=== PATIENT | female | born 1990 | race Caucasian/White ===

== ENCOUNTER 2021-09-26 11:33 | Inpatient (IN) | payer OTHER ==
--- NOTE | 2021-09-26 12:55 | NUR ---
QUAD SWAB COLLECTED SEMT TO IN-HOUSE LAB
--- NOTE | 2021-09-26 18:52 | PR ---
[facility] [address] [facility] [place], [place] [address] Signed Progress Notes IP Datetime Report Generated by CPN: 09/26/2021 18:52 PROGRESS NOTES: [id number] Plan: Continue Present Management; Cervical Ripening VITAL SIGNS: [id number] Vital Signs: Reviewed; Within Normal Limits EXAM: [id number] Dilatation: 1.0 Effacement: 25 Station: -2 Contractions: none MEMBRANES: [id number] Membranes Status: Intact Comments: Beginning to feel contractions, BP somewhat elevated (1 high, but while patient moving around) PIH Panel and Urine PC Ratio normal -> Getational Hypertension -> will follow closely, continue monitoring BP, do not feel patient has Preeclampsia at this time; discussed dx and plan with patient FETUS A: [id number] FHR Baseline: 130 Variability: Moderate 6-25bpm Accelerations: 15X15 Presentation: Vertex FETUS B: [id number] Signing Physician: Mg Melchor MD Copies: ~ *Electronically Signed* 09/26/211851 MG MELCHOR MD PATIENT NAME: YVONNE AUGUSTIN MICHAEL PROGRESS NOTE DATE OF : 86 PHYSICIAN: MG MELCHOR MD RPT #: [id number] REPORT IS CONFIDENTIAL AND NOT TO BE RELEASED WITHOUT AUTHORIZATION
--- NOTE | 2021-09-26 20:12 | PR ---
[facility] [address] [facility] [place], [place] [address] Signed Progress Notes IP Datetime Report Generated by CPN: 09/26/2021 20:12 PROGRESS NOTES: [id number] Impression: Normal Progression of Labor Procedures: Artificial ROM Plan: Continue Present Management VITAL SIGNS: [id number] Vital Signs: Reviewed; Within Normal Limits EXAM: [id number] Dilatation: 2.5 Effacement: 75 Station: -3 Contractions: none MEMBRANES: [id number] Membranes Status: Ruptured Comments: No BUNDY's, no vision changes, but increasibng BP; given IV Labetalol per protocol Dx: Preeclampsia with Severe Features - discussed dx and plan with patient -> Start MagSo4 -> Epidural prn -> Continue with Induction, closely monitor BP FETUS A: [id number] FHR Baseline: 130 Variability: Moderate 6-25bpm Accelerations: 15X15 Presentation: Vertex FETUS B: [id number] Signing Physician: Mg Melchor MD Copies: ~ *Electronically Signed* 09/26/212011 MG MELCHOR MD PATIENT NAME: YVONNE AUGUSTIN MICHAEL PROGRESS NOTE DATE OF : [birth year] PHYSICIAN: MG MELCHOR MD RPT #: [id number] REPORT IS CONFIDENTIAL AND NOT TO BE RELEASED WITHOUT AUTHORIZATION
--- NOTE | 2021-09-26 21:19 | PR ---
[facility] [address] [facility] [place], [place] [address] Signed Progress Notes IP Datetime Report Generated by CPN: 09/26/2021 21:19 PROGRESS NOTES: [id number] Impression: Normal Progression of Labor Other Impressions: Rapid progress Procedures: Artificial ROM Plan: Continue Present Management; Anticipate Vaginal Delivery VITAL SIGNS: [id number] Vital Signs: Reviewed; Within Normal Limits EXAM: [id number] Dilatation: 8.0 Effacement: 90 Station: -1 Contractions: none MEMBRANES: [id number] Membranes Status: Ruptured Comments: Had Epidural placed but not working well, with rapid cervical change. Will watch FHR closely, expect delviery soon. FETUS A: [id number] FHR Baseline: 130 Variability: Moderate 6-25bpm Accelerations: 15X15 Presentation: Vertex FETUS B: [id number] Signing Physician: Emily Melchor MD Copies: ~ *Electronically Signed* 09/26/212118 EMILY MELCHOR MD PATIENT NAME: YVONNE AUGUSTIN PROGRESS NOTE DATE OF : 86 PHYSICIAN: EMILY MELCHOR MD RPT #: [id number] REPORT IS CONFIDENTIAL AND NOT TO BE RELEASED WITHOUT AUTHORIZATION
--- NOTE | 2021-09-27 00:47 | PR ---
[facility] [address] [place], [place] [address] Signed PP Progress Notes Datetime Report Generated by CPN: 09/27/2021 00:47 SUBJECTIVE: [id number] Pain: Within Normal Limits Nausea/Vomiting: Denies Vital Signs: [id number] Vital Signs: Reviewed; Within Normal Limits Notable Details: O2Sat > 95% Abdomen/Uterus: Normal Extremities: Normal Exam Comments: Uterus: feels firm. Perineum - no swelling or bruising. Vag: no acute bleeding, moderate dark blood from uterus during bimanual exam, no clots or tissue palpable in cervix. IMPRESSION/PLAN/PROCEDURES: [id number] Other Impression: PP Hemorrhage Other Plans: Hemabate 250 mcg IM, TXA 1 gm IV Procedures: None Progress Notes: No complaints, no dizziness, but about 300 ml blood loss since repair of lacerations . Bleeding probably increased due to MagSO4. Overall EBL mostly from vaginal lacerations already repaired. CBC, CMP, PT/PTT ordered Continue close observation Signing Physician: Emily Melchor MD Copies: ~ *Electronically Signed* 09/27/21 0047 EMILY MELCHOR MD PATIENT NAME: YVONNE AUGUSTIN PROGRESS NOTE DATE OF : 86 PHYSICIAN: EMILY MELCHOR MD RPT #: [id number] REPORT IS CONFIDENTIAL AND NOT TO BE RELEASED WITHOUT AUTHORIZATION
--- NOTE | 2021-09-27 02:08 | PR ---
[facility] [address] [facility] [place], [place] [address] Signed PP Progress Notes Datetime Report Generated by CPN: 09/27/2021 02:08 SUBJECTIVE: [id number] Pain: Within Normal Limits Nausea/Vomiting: Denies Vital Signs: [id number] Vital Signs: Reviewed Notable Details: slight tachycardia Abdomen/Uterus: Normal Extremities: Normal Exam Comments: Uterus: feels firm. Perineum - no swelling or bruising. Vag: no acute bleeding, moderate dark blood from uterus during bimanual exam, no clots or tissue palpable in cervix. IMPRESSION/PLAN/PROCEDURES: [id number] Other Impression: PP Hemorrhage; resolving Plan: Continue Present Management Other Plans: Hemabate 250 mcg IM, TXA 1 gm IV Procedures: None Progress Notes: No complaints, sitting up in bed, minimal vaginal bleeding, labs reassuring. Will continue to monitor. Signing Physician: Emily Melchor MD Copies: ~ *Electronically Signed* 09/27/21 0208 EMILY MELCHOR MD PATIENT NAME: YVONNE AUGUSTIN PROGRESS NOTE DATE OF : [birth year] PHYSICIAN: EMILY MELCHOR MD RPT #: [id number] REPORT IS CONFIDENTIAL AND NOT TO BE RELEASED WITHOUT AUTHORIZATION
--- NOTE | 2021-09-27 04:22 | PR ---
[facility] [address] [place], [place] [address] Signed PP Progress Notes Datetime Report Generated by CPN: 09/27/2021 04:22 SUBJECTIVE: [id number] Pain: Within Normal Limits Nausea/Vomiting: Denies Vital Signs: [id number] Vital Signs: Reviewed Notable Details: slight tachycardia Abdomen/Uterus: Normal Extremities: Normal Exam Comments: Uterus: feels firm. Perineum - no swelling or bruising. Vag: no acute bleeding, moderate dark blood from uterus during bimanual exam, no clots or tissue palpable in cervix. IMPRESSION/PLAN/PROCEDURES: [id number] Other Impression: PP Hemorrhage Plan: Continue Present Management Other Plans: Hemabate 250 mcg IM, TXA 1 gm IV Procedures: None Progress Notes: Still without complaint, no dizziness/light-headdedness, but another episode where passed about 200 ml blood from vagina. Stop MagSO4 call center analyst to OR for PP Curettage, possible Bakri Balloon; discussed with patient, risks, possible additional surgery, including hysterectomy. Questions answered. Consent signed. Signing Physician: Emily Melchor MD Copies: ~ *Electronically Signed* 09/27/21 0422 EMILY MELCHOR MD PATIENT NAME: YVONNE AUGUSTIN PROGRESS NOTE DATE OF : 86 PHYSICIAN: EMILY MELCHOR MD RPT #: [id number] REPORT IS CONFIDENTIAL AND NOT TO BE RELEASED WITHOUT AUTHORIZATION
--- NOTE | 2021-09-27 06:15 | PR ---
[facility] [address] [facility] [place], [place] [address] Signed PP Progress Notes Datetime Report Generated by CPN: 09/27/2021 06:15 SUBJECTIVE: [id number] Pain: Within Normal Limits Nausea/Vomiting: Denies Vital Signs: [id number] Vital Signs: Reviewed; Within Normal Limits Notable Details: slight tachycardia Abdomen/Uterus: Normal Lochia: Normal Extremities: Normal Exam Comments: Uterus: feels firm. Perineum - no swelling or bruising. Vag: no acute bleeding, moderate dark blood from uterus during bimanual exam, no clots or tissue palpable in cervix. IMPRESSION/PLAN/PROCEDURES: [id number] Other Impression: Stable Plan: Continue Present Management Other Plans: Hemabate 250 mcg IM, TXA 1 gm IV Procedures: None Other Procedures: Post-op EUA, PP Curettage, Repair of Cervical and Vaginal Lacera Progress Notes: Dictation #[id number] Patient tolerated procedures well, minimal blood loss during and after procedures. Will continue Pitocin infusion. Since asymptomatic, will wait for repeat Hemogram before deciding on further treatment. Signing Physician: Emily Melchor MD Copies: ~ *Electronically Signed* 09/27/21 0615 EMILY MELCHOR MD PATIENT NAME: YVONNE AUGUSTIN PROGRESS NOTE DATE OF : [birth year] PHYSICIAN: EMILY MELCHOR MD RPT #: [id number] REPORT IS CONFIDENTIAL AND NOT TO BE RELEASED WITHOUT AUTHORIZATION
--- NOTE | 2021-09-27 06:18 | NUR ---
09/27/21 0618 RERE CHEUNG 0559 PATIENT TRANSFERED BACK TO [facility] IN BED TO ROOM 106. DUTCH SCOTT PROVIDED BEDSIDE REPORT TO TERRANCE CEDENO. PATIENT AWAKE, REPORTS 0/10 PAIN BREATHING REGULAR. STATES " I JUST KEEP SHAKING BUT I AM NOT COLD" PATIENT REASSURED THAT RESIDUALS OF MEDICATIONS WEARING OFF AND THAT FEELING SHOULD RESOLVE. SPINAL AT L2, LUIS CARLOS PAD APPEARS TO HAVE SMALL SPOT OF RED BLOOD. 0550 PATIENT SPINAL EFFECTIVE AT L2, 0/10 ON PAIN SCALE. LUIS CARLOS PAD APPEARS TO HAVE SMALL DROP OF BLOOD RED DRAINAGE. URINE APPEARS CLEAR IN PERSAUD BAG 15O MLS EMPTIED FROM BAG. BEDSIDE REPORT TO TERRANCE CEDENO. FATHER AT BEDSIDE WITH BABY, AND CONVERSING WITH PATIENT.
--- NOTE | 2021-09-27 13:14 | OR ---
[facility] [facility] [address] [place], [place] [address] Signed DATE OF OPERATION: 09/27/2021 SURGEON: Mg Quintana MD PREOPERATIVE DIAGNOSIS: hemorrhage. POSTOPERATIVE DIAGNOSIS: hemorrhage. PROCEDURES: Exam under anesthesia, curettage, and repair of cervical and vaginal lacerations. BOOK OR SCRIPT EDITOR: Vannesa Thomas D.O. ANESTHESIA: Spinal. ESTIMATED BLOOD LOSS: 50 mL. SPECIMEN: None. DRAINS: Tran to bladder. PACKING: None. FINDINGS: Term uterus, no tissue and minimal small clots in the uterine cavity. Cervix with small laceration at 2 o'clock, but no bleeding from the laceration. Vagina had stitches from previous repair and a small left posterior vaginal laceration about midway into the vagina just above stitches from previous vaginal repair. There was only minimal bleeding from this area. No perineal lacerations. No hematomas. Rectal exam showed no defects, no blood, no stitches palpable. Electronically Signed By: MG QUINTANA MD 09/27/21 1314 PATIENT NAME: YVONNE AUGUSTIN OPERATIVE REPORT DATE OF : 86 REPORT #: [id number] PHYSICIAN: MG QUINTANA MD PCP: NO PRIMARY CARE PHYSICIAN REPORT IS CONFIDENTIAL AND NOT TO BE RELEASED WITHOUT AUTHORIZATION [facility] [address] [place] [address] [place] [address] Signed COMPLICATIONS: None. DESCRIPTION OF PROCEDURE: The patient was brought to the operating room, placed in supine position. After adequate spinal anesthesia was obtained, she was placed in dorsal lithotomy position, prepped and draped in usual sterile fashion. Tran catheter was already in the bladder. Weighted speculum was placed in the vagina and the cervix identified, grasped with the ring forceps, anterior and posterior. The uterus was palpated and noted to be firm, so a large banjo curette was carefully inserted into the cervix under direct visualization and scraped in a 360 degree fashion, only a few small clots and no bleeding came from the uterus and no tissue was seen or felt. At this point, the cervix was followed around in 360 degree fashion with ring forceps. There was a small laceration at 2 o'clock, but no bleeding. This was repaired with a running locking stitch of 0-chromic suture starting at the apex of the incision, which was about 3 cm long out to the cervical edges and then tied in place. The vagina was then inspected. Sponge stick was used. On the posterior left vaginal wall, just above the sutures placed immediately . There was a small approximately 2 cm defect that was seen superficial and had only minimal bleeding. This was closed with a running locking stitch of 0-chromic suture starting just above the laceration and extending into the previously placed stitches. This was done again with 0-chromic suture and then tied off. The entire vagina and cervix were re-examined, no bleeding was noted, no defects were noted. Sponge stick was left in the vagina for 5 minutes, taken out, had minimal blood on. The patient was then observed for another about 5 minutes and careful sponge stick placed in and no bleeding was noted without the pressure of the sponge stick. Good hemostasis was noted, so the procedure was terminated. The patient tolerated the procedure well and went to the recovery room in good condition. The sponge and instrument count were correct at the end of the procedure. Mg Quintana MD MJB/MODL /[id number] Electronically Signed By: MG QUINTANA MD 09/27/21 1314 PATIENT NAME: CHARLIYVONNESURYA RODRIGUEZ OPERATIVE REPORT DATE OF : 86 REPORT #: [id number] PHYSICIAN: MG QUINTANA MD PCP: NO PRIMARY CARE PHYSICIAN REPORT IS CONFIDENTIAL AND NOT TO BE RELEASED WITHOUT AUTHORIZATION [facility] [address] [place] [address] [place], [place] [address] Signed Copies: ~ Electronically Signed By: MG QUINTANA MD 09/27/21 1314 PATIENT NAME: YVONNE AUGUSTIN OPERATIVE REPORT DATE OF : 86 REPORT #: [id number] PHYSICIAN: MG QUINTANA MD PCP: NO PRIMARY CARE PHYSICIAN REPORT IS CONFIDENTIAL AND NOT TO BE RELEASED WITHOUT AUTHORIZATION
--- NOTE | 2021-09-27 13:16 | PR ---
[facility] [facility] [address] [facility] [place], [place] [address] Signed PP Progress Notes Datetime Report Generated by CPN: 09/27/2021 13:16 SUBJECTIVE: [id number] Pain: Within Normal Limits Nausea/Vomiting: Denies Vital Signs: [id number] Vital Signs: Reviewed; Within Normal Limits Notable Details: HR = 78 bpm Repeat Hgb/Hct = 8.4/24.6, Plts = 164 PT, Fibrinogen normal, PTT still pending EXAM: Ongoing Abdomen/Uterus: Normal Lochia: Normal Extremities: Normal Exam Comments: Good urine output IMPRESSION/PLAN/PROCEDURES: [id number] Other Impression: PP Hemrrhage Plan: Continue Present Management Other Plans: Hemabate 250 mcg IM, TXA 1 gm IV Procedures: None Other Procedures: Post-op EUA, PP Curettage, Repair of Cervical and Vaginal Lacera Progress Notes: No complaints, no dizziness, minimal bleeding but occasional larger gushes. Will continue monitoring Signing Physician: Emily Melchor MD Copies: ~ *Electronically Signed* 09/27/21 1316 EMILY MELCHOR MD PATIENT NAME: YVONNE AUGUSTIN PROGRESS NOTE DATE OF : 86 PHYSICIAN: EMILY MELCHOR MD RPT #: [id number] REPORT IS CONFIDENTIAL AND NOT TO BE RELEASED WITHOUT AUTHORIZATION
--- NOTE | 2021-09-27 18:41 | PR ---
[facility] [address] [place], [place] [address] Signed PP Progress Notes Datetime Report Generated by CPN: 09/27/2021 18:41 SUBJECTIVE: [id number] Pain: Within Normal Limits Nausea/Vomiting: Denies Vital Signs: [id number] Vital Signs: Reviewed; Within Normal Limits Notable Details: HR = 78 bpm Repeat Hgb/Hct = 8.4/24.6, Plts = 164 PT, Fibrinogen normal, PTT still pending EXAM: Ongoing Abdomen/Uterus: Normal Lochia: Normal Extremities: Normal Exam Comments: Good urine output IMPRESSION/PLAN/PROCEDURES: [id number] Other Impression: Retained POC Plan: Continue Present Management Other Plans: Hemabate 250 mcg IM, TXA 1 gm IV Procedures: None Other Procedures: Post-op EUA, PP Curettage, Repair of Cervical and Vaginal Lacera Progress Notes: Bleeding has been slowing all afternoon (< 50 ml/hr), but recently had increase of about 200 ml in 2 hours. U/S ordered, which showed irregular echose c/w retained POC, small artery bleeding in posterior wall near fundus. Discussed with patient, need for repeat PP Curettage and Bakri Balloon placement. Discussed procedure, risks vs benefits. Consent signed. -> Repeat CBC -> feeder tender to OR Signing Physician: Emily Melchor MD Copies: ~ *Electronically Signed* 09/27/21 4079 EMILY MELCHOR MD PATIENT NAME: YVONNE AUGUSTIN PROGRESS NOTE DATE OF : 88 PHYSICIAN: EMILY MELCHOR MD RPT #: [id number] REPORT IS CONFIDENTIAL AND NOT TO BE RELEASED WITHOUT AUTHORIZATION
--- NOTE | 2021-09-27 21:15 | PR ---
[facility] [address] [facility] [place], [place] [address] Signed PP Progress Notes Datetime Report Generated by CPN: 09/27/2021 21:15 SUBJECTIVE: [id number] Pain: Within Normal Limits Nausea/Vomiting: Denies Vital Signs: [id number] Vital Signs: Reviewed; Within Normal Limits Notable Details: HR = 78 bpm Repeat Hgb/Hct = 8.4/24.6, Plts = 164 PT, Fibrinogen normal, PTT still pending EXAM: Ongoing Abdomen/Uterus: Normal Lochia: Normal Extremities: Normal Exam Comments: Good urine output IMPRESSION/PLAN/PROCEDURES: [id number] Other Impression: Retained POC Plan: Continue Present Management Other Plans: Hemabate 250 mcg IM, TXA 1 gm IV Procedures: None Other Procedures: Post-op EUA, PP Curettage, Repair of Cervical and Vaginal Lacera Progress Notes: Patient tolerated PP Curettage and Bakri Balloon placement well (dictation #[id number]). Received 1 u PRBC's during surgery. Will recheck CBC tonigjht and in am. Signing Physician: Emily Melchor MD Copies: ~ *Electronically Signed* 09/27/21 9540 EMILY MELCHOR MD PATIENT NAME: YVONNE AUGUSTIN PROGRESS NOTE DATE OF : 86 PHYSICIAN: EMILY MELCHOR MD RPT #: [id number] REPORT IS CONFIDENTIAL AND NOT TO BE RELEASED WITHOUT AUTHORIZATION
--- NOTE | 2021-09-27 21:28 | NUR ---
09/27/212127 RERE CHEUNG 2021 PATIENT INTO PACU, APPEARS AWAKE. COMPLAINTS OF TREMOR SIDE EFFECTS FROM SURGERY. INFUSING 1 UNIT OF PRBCS THAT HAD BEEN STARTED IN THE OR. PATIENT HAD BAKRI BALLOON PLACED, 300 ML OF NS IN BALLOON. LUIS CARLOS PAD APPEARS CLEAN AND DRY. PATIENT BREATHING REGULAR AND EVEN, ENCOURAGED TO COUGH AND DEEP BREATH. 2029 PATIENT MOVING LEGS IN BED, SPINAL RESOLVING. EMPTIED 110 ML OF CLEAR YELLOW URINE FROM PERSAUD BAG. BAKRI BALLOON HAS CATHETER BAG, NO NEW DRAINAGE. PATIENT REPORTS 0/10 PAIN. APPEARS TO BE CONVERSING EASILY. VSS. PRBC CONTINUES TO INFUSE. 2039 PRBC DONE INFUSING, LINE FLUSHED. CALL TO FBC TO NOTIFY OF PATIENT RETURN. PATIENT HAS NO NEEDS AT THIS TIME. TRASFERED PATIENT TO ROOM 106 VIA STRETCHER. 2049 BEDSIDE REPORT PROVIDED TO MARC CEDENO. ANSWERED ALL QUESTIONS AND CONCERNS. MARC TO RESUME CARE.
--- NOTE | 2021-09-28 11:28 | PR ---
[facility] [address] [place], [place] [address] Signed PP Progress Notes Datetime Report Generated by CPN: 09/28/2021 11:28 SUBJECTIVE: [id number] Pain: Within Normal Limits Nausea/Vomiting: Denies Vital Signs: [id number] Vital Signs: Reviewed; Within Normal Limits Notable Details: Hgb/Hct = 6.3/18.5 PT/PTT/Fibrinogen normal EXAM: Ongoing Abdomen/Uterus: Normal Lochia: Normal Extremities: Normal Exam Comments: Good urine output IMPRESSION/PLAN/PROCEDURES: [id number] Other Impression: PP Anemia Plan: Continue Present Management Other Plans: Hemabate 250 mcg IM, TXA 1 gm IV Procedures: Transfusion Other Procedures: Post-op EUA, PP Curettage, Repair of Cervical and Vaginal Lacera Progress Notes: Patient doing well since Bakri Balloon placement; minimal blood output (<20 ml / hr), no pain. Bakri Balloon removed without difficulty, no new bleeding noted, uterus firm. Will transfuse 2nd unit PRBC's due to severe anemia Increase activity later this afternoon, as tolerated, will d/c Tran if remains stable. Recheck CBC, CMP later this afternoon Signing Physician: Emily Melchor MD Copies: ~ *Electronically Signed* 09/28/21 1128 EMILY MELCHOR MD PATIENT NAME: YVONNE AUGUSTIN PROGRESS NOTE DATE OF : 86 PHYSICIAN: EMILY MELCHOR MD RPT #: [id number] REPORT IS CONFIDENTIAL AND NOT TO BE RELEASED WITHOUT AUTHORIZATION
--- NOTE | 2021-09-28 18:30 | PR ---
[facility] [address] [facility] [place], [place] [address] Signed PP Progress Notes Datetime Report Generated by CPN: 09/28/2021 18:30 SUBJECTIVE: [id number] Pain: Within Normal Limits Nausea/Vomiting: Denies Vital Signs: [id number] Vital Signs: Reviewed; Within Normal Limits Notable Details: Hgb/Hct = 7.8/23.3 EXAM: Ongoing Abdomen/Uterus: Normal Lochia: Normal Extremities: Normal Exam Comments: Good urine output IMPRESSION/PLAN/PROCEDURES: [id number] Impression: Normal Progression Other Impression: PP Anemia Plan: Continue Present Management Other Plans: Hemabate 250 mcg IM, TXA 1 gm IV Procedures: None Other Procedures: Post-op EUA, PP Curettage, Repair of Cervical and Vaginal Lacera Progress Notes: Doing well, without complaint, up moving without difficulty, no dizziness, eating regular food, ready for shower. Only slight spotting since removal of Bakri Balloon. Signing Physician: Emily Melchor MD Copies: ~ *Electronically Signed* 09/28/21 438 EMILY MELCHOR MD PATIENT NAME: YVONNE AUGUSTIN PROGRESS NOTE DATE OF : 86 PHYSICIAN: EMILY MELCHOR MD RPT #: [id number] REPORT IS CONFIDENTIAL AND NOT TO BE RELEASED WITHOUT AUTHORIZATION
--- NOTE | 2021-09-29 08:17 | PR ---
[facility] [address] [facility] [place], [place] [address] Signed PP Progress Notes Datetime Report Generated by CPN: 09/29/2021 08:17 SUBJECTIVE: [id number] Pain: Within Normal Limits Pain Comments: except for headache today Nausea/Vomiting: Denies Vital Signs: [id number] Vital Signs: Reviewed Notable Details: slightly elevated BP EXAM: Ongoing Abdomen/Uterus: Normal Lochia: Normal Extremities: Normal Exam Comments: Good urine output IMPRESSION/PLAN/PROCEDURES: [id number] Impression: Normal Progression Other Impression: Acute Blood Loss Anemia Plan: Continue Present Management Other Plans: IV Fe Procedures: None Other Procedures: Post-op EUA, PP Curettage, Repair of Cervical and Vaginal Lacera Progress Notes: Doing well, without complaint except for headace today, no vision changes, no dizziness -> Iron transfusion -> watch BP Hopefully home later today; with F/u in 3 days (BP check and 2nd IV Fe) Signing Physician: Mg Melchor MD Copies: ~ *Electronically Signed* 09/29/21 0817 MG MELCHOR MD PATIENT NAME: BETOWillieYVONNE PROGRESS NOTE DATE OF : 86 PHYSICIAN: MG MELCHOR MD RPT #: [id number] REPORT IS CONFIDENTIAL AND NOT TO BE RELEASED WITHOUT AUTHORIZATION
--- NOTE | 2021-09-29 08:42 | OR ---
[facility] [address] [place], [place] [address] Signed DATE OF OPERATION: 09/27/2021 SURGEON: Mg Quintana MD PREOPERATIVE DIAGNOSES: hemorrhage, acute blood-loss anemia. POSTOPERATIVE DIAGNOSES: hemorrhage, acute blood-loss anemia. PROCEDURES: curettage, Bakri balloon placement and transfusion 1 unit packed red blood cells. [employer]: Vannesa Thomas DO ANESTHESIA: Spinal. ESTIMATED BLOOD LOSS: 200 mL. SPECIMEN: Retained tissue. DRAINS: Tran to bladder. Bakri balloon attached to a urometer packing a Bakri balloon in uterine cavity. FINDINGS: Vagina with few blood clots. Stitches from previous vaginal laceration repair plus slight bleeding noted after Bakri balloon placement in the left posterior vagina thought to be from slight tearing of the laceration during examination. Cervix was opened approximately 4 cm. No bleeding. Some clots in the lower cervix. There are stitches from previous cervical laceration repair. Uterus was slightly enlarged. There were several blood clots within the lower uterine segment. Small amount of tissue removed during curetting. No large piece of placental tissue or membranes identified. COMPLICATIONS: Electronically Signed By: MG QUINTANA MD 09/29/21 0842 PATIENT NAME: YVONNE AUGUSTIN OPERATIVE REPORT DATE OF : 86 REPORT #: [id number] PHYSICIAN: MG QUINTANA MD PCP: NO PRIMARY CARE PHYSICIAN REPORT IS CONFIDENTIAL AND NOT TO BE RELEASED WITHOUT AUTHORIZATION [facility] [address] [place], [place] [address] Signed None. DESCRIPTION OF PROCEDURE: The patient was brought to the operating room, placed in supine position. After adequate spinal anesthesia was obtained, was placed in dorsal lithotomy position, prepped and draped in usual sterile fashion. The patient already had a Tran catheter in the bladder. Weighted speculum was placed in the vagina and bimanual exam was done removing some clots from the cervix. A weighted speculum was then placed in the vagina and the cervix was grasped with ring forceps on the anterior and posterior lips. Cervix was examined, noted to have good hemostasis. A large banjo curette was carefully introduced into the uterine cavity and scraped in a 360-degree fashion. Attention was mostly given to the posterior fundus where the ultrasound stated there was some active bleeding, only a small amount of possible tissue was removed. No obvious large pieces, normal empty sound of the uterus was felt throughout. At this point, there was slight oozing from the lower uterine segment, which seem to be raw. This was visualized and no tissue attached to the lower segment or the upper cervix. The Bakri balloon was then brought in the operating field and prepared. The tip of the balloon was inserted into the uterus and inserted up toward the fundus of the uterus. The balloon was slowly filled while watching placement and filling under ultrasound guidance. 300 mL of sterile saline was inserted into the balloon. The balloon stayed in place well and temained in the uterus and did not bulge from the cervix. The filling tubing was then removed leaving the 300 mL in the balloon and the cervix was watched. The balloon appeared to be in correct placement in the uterus by pelvic exam and ultrasound exam. Good hemostasis was noted and minimal blood was in the drainage port of the Bakri balloon. The vaginal wall was inspected and a small bleeding on the left side was noted. This was repaired with two superficial [id number] stitches of 0 chromic. Good hemostasis was then noted. The cervix was reexamined, noted to have good hemostasis with the Bakri balloon in place. The area was monitored for several minutes and no bleeding at all was noted. At this point, the procedure was terminated. The Bakri balloon drain was attached to urometer. The patient tolerated the procedure well and went to recovery room in good condition. The uterine curettings were sent to Pathology for identification. Mg Quintana MD MJB/MODL /[id number] Electronically Signed By: MG QUINTANA MD 09/29/21 0842 PATIENT NAME: YVONNE AUGUSTIN OPERATIVE REPORT DATE OF : 86 REPORT #: [id number] PHYSICIAN: MG QUINTANA MD PCP: NO PRIMARY CARE PHYSICIAN REPORT IS CONFIDENTIAL AND NOT TO BE RELEASED WITHOUT AUTHORIZATION [address] [address] Signed Copies: ~ Electronically Signed By: MG QUINTANA MD 09/29/21 0842 PATIENT NAME: ANYISTONEYYVONNE OPERATIVE REPORT DATE OF : 86 REPORT #: [id number] PHYSICIAN: MG QUINTANA MD PCP: NO PRIMARY CARE PHYSICIAN REPORT IS CONFIDENTIAL AND NOT TO BE RELEASED WITHOUT AUTHORIZATION
--- NOTE | 2021-09-29 11:56 | PR ---
[facility] [address] [place], [place] [address] Signed PP Progress Notes Datetime Report Generated by CPN: 09/29/2021 11:56 SUBJECTIVE: [id number] Pain: Within Normal Limits Pain Comments: except for headache today Nausea/Vomiting: Denies Vital Signs: [id number] Vital Signs: Reviewed; Within Normal Limits Notable Details: slightly elevated BP EXAM: Ongoing Abdomen/Uterus: Normal Lochia: Normal Extremities: Normal Exam Comments: Good urine output IMPRESSION/PLAN/PROCEDURES: [id number] Impression: Normal Progression Other Impression: PP HErmorrhage. Acute Blood loss anemia Plan: Discharge Other Plans: IV Fe Procedures: None Other Procedures: Post-op EUA, PP Curettage, Repair of Cervical and Vaginal Lacera Progress Notes: Doing well, without complaint, ready to go home, no more bleeding, tolerated IV Iron infusion well. Signing Physician: Emily Melchor MD Copies: ~ *Electronically Signed* 09/29/21 1156 EMILY MELCHOR MD PATIENT NAME: YVONNE AUGUSTIN PROGRESS NOTE DATE OF : 86 PHYSICIAN: EMILY MELCHOR MD RPT #: [id number] REPORT IS CONFIDENTIAL AND NOT TO BE RELEASED WITHOUT AUTHORIZATION
== END 2021-09-29 13:56 | disposition home or self-care (01) | DRG 768 ==
LOC: FBC 11:33
PROVIDERS: ADMIT General Practice; ATTEND General Practice
PROC: 10E0XZZ Delivery of Products of Conception, External Approach (ICD-10-PCS; principal; 2021-09-26)
PROC: 10907ZC Drainage of Amniotic Fluid, Therapeutic from Products of Conception, Via Natural or Artificial Opening (ICD-10-PCS; 2021-09-26)
PROC: 0HQ9XZZ Repair Perineum Skin, External Approach (ICD-10-PCS; 2021-09-26)
PROC: 3E0R3BZ Introduction of Anesthetic Agent into Spinal Canal, Percutaneous Approach (ICD-10-PCS; 2021-09-26)
PROC: 00HU33Z Insertion of Infusion Device into Spinal Canal, Percutaneous Approach (ICD-10-PCS; 2021-09-26)
PROC: 3E0P7VZ Introduction of Hormone into Female Reproductive, Via Natural or Artificial Opening (ICD-10-PCS; 2021-09-26)
PROC: 0W3R7ZZ Control Bleeding in Genitourinary Tract, Via Natural or Artificial Opening (ICD-10-PCS; 2021-09-27)
PROC: 30233N1 Transfusion of Nonautologous Red Blood Cells into Peripheral Vein, Percutaneous Approach (ICD-10-PCS; 2021-09-27)
PROC: 0UQG7ZZ Repair Vagina, Via Natural or Artificial Opening (ICD-10-PCS; 2021-09-27)
DX: O14.14 Severe pre-eclampsia complicating childbirth (principal); Z37.0 Single live birth; D62 Acute posthemorrhagic anemia; Z20.822 Contact with and (suspected) exposure to COVID-19; O71.4 Obstetric high vaginal laceration alone; O72.1 Other immediate postpartum hemorrhage; O36.5930 Maternal care for other known or suspected poor fetal growth, third trimester, not applicable or unspecified; Z3A.40 40 weeks gestation of pregnancy; O90.81 Anemia of the puerperium; O70.0 First degree perineal laceration during delivery; O62.3 Precipitate labor; Z79.899 Other long term (current) drug therapy
CPT/HCPCS: 00940; 01320; 36415; 36430; 76856; 76942; 80053; 82565; 82570; 84156; 84450; 84520; 84550; 85025; 85027; 85384; 85610; 85730; 86850; 86900; 86901; 86922; A9270; C9803; J0690; J2001; J2250; J2405; J2590; J2704; J2795; J3475; J7040; J7121; P9016; Q0138; U0003

== ENCOUNTER 2021-10-04 14:44 | Emergency (ER) | payer OTHER ==
[~2021-10-04] VITALS: Ht 175.3 cm; Wt 86.8 kg
[2021-10-04] MEDS ORDERED: PROCARDIA XL30 MG PO (17:37)
--- NOTE | 2021-10-05 08:07 | EKG ---
[facility] [address] [facility] [place], [place] [address] Signed Sinus tachycardia Otherwise normal ECG No previous ECGs available Confirmed by JOHN FLORES MD ([id number]) on 10/05/2021 8:07:28 AM Electronically Signed By: JOHN FLORES MD 10/05/21 0807 PATIENT NAME: YVONNE AUGUSTIN MICHAEL Electrocardiogram DATE OF : 86 PHYSICIAN: JOHN FLORES MD REPORT #: [id number] REPORT IS CONFIDENTIAL AND NOT TO BE RELEASED WITHOUT AUTHORIZATION
== END 2021-10-04 18:13 | disposition home or self-care (01) ==
LOC: ED 14:44
DX: I10 Essential (primary) hypertension (principal)
CPT/HCPCS: 36415; 80053; 81001; 85025; 93005; 93010; 96374; 99284-25; J1885; J7121